=== PATIENT | male | born 1930 | race Caucasian/White ===

== ENCOUNTER 2020-10-19 22:10 | Inpatient (IN) | payer MEDICARE, OTHER ==
[~2020-10-19] VITALS: Ht 172.7 cm; Wt 65.8 kg
[~2020-10-19 22:10] MED LIST: ACIPHEX20 MG PO; ALLERGY RELIEF10 M1 PO; ANTIVERT 25MG T25 MG PO; ASPIR 8181 MG PO; AVODART0.5 MG PO; CARBIDOPA-LEVO1 EAC1 PO; CATAPRES 0.1MG0.1 MG PO; CEFUROXIME500 MG PO; ELIQUIS 2.5 MG2.5 MG PO; FARXIGA10 MG PO; FLOMAX 0.4 MG0.4 MG PO; IPRAT-ALBUT 0.5-3 ML NEB; JANUVIA50 MG PO; LASIX20 MG PO; LISINOPRIL10 MG PO; LOPRESSOR50 MG PO; MELATONIN3 MG PO; METFORMIN HCL500 MG PO; MOBIC7.5 MG PO; MYCOSTATIN100000 UTS PO; NASONEX SPRAY 117 GM; NORVASC 5 MG TAB5 MG PO; PRAVACHOL40 MG PO; SINGULAIR10 MG PO; STOOL SOFTENER100 MG PO; SYMMETREL 100100 MG PO; SYNTHROID 100100 MCG PO; TYLENOL 325MG325 MG PO; VITAMIN B-121000 MCG PO; VITAMIN D31000 UNI1 PO; VITAMIN D325 MC6 PO; VITAMIN D350000 UNIT PO
[2020-10-19 22:55] LABS: HEMOGLOBIN 9.2 gm/dl (14.0-17.5); RED BLOOD COUNT 3.99 M/UL (4.20-5.50); WHITE BLOOD COUNT 5.5 K/UL (4.5-11.0)
[2020-10-19 23:19] LABS: BUN/CREATININE RATIO 34 (0-10)
[2020-10-20] MEDS ORDERED: LEXAPRO5 MG PO (00:39)
[2020-10-20] MEDS ORDERED: PROTONIX40 MG PO (00:41)
[2020-10-20] MEDS ORDERED: SENNA-DOCUSATE1 EACH PO (00:43)
[2020-10-20] MEDS ORDERED: QUETIAPINE FUMA25 MG PO (00:47)
[2020-10-20] MEDS ORDERED: TYLENOL 500 MG500 MG PO (00:48)
[2020-10-20] MEDS ORDERED: CARBIDOPA-LEVO1 EA14 PO (00:52)
[2020-10-20] MEDS ORDERED: GENTLE LAXATIVE10 MG PR (00:56)
[2020-10-20] MEDS ORDERED: LACTULOSE20 GM/30 M PO (00:57)
[2020-10-20] MEDS ORDERED: ZINC OXIDE2500 GM TP (00:59)
[2020-10-20 05:10] LABS: HEMOGLOBIN 8.1 gm/dl (14.0-17.5); RED BLOOD COUNT 3.54 M/UL (4.20-5.50); WHITE BLOOD COUNT 6.1 K/UL (4.5-11.0)
[2020-10-20 05:38] LABS: BUN/CREATININE RATIO 33 (0-10)
--- NOTE | 2020-10-20 19:19 | NUR ---
report given to sudha tejeda
[2020-10-21 02:59] LABS: RED BLOOD COUNT 3.45 M/UL (4.20-5.50)
[2020-10-21 03:00] LABS: WHITE BLOOD COUNT 8.9 K/UL (4.5-11.0)
[2020-10-21 03:24] LABS: BUN/CREATININE RATIO 37 (0-10)
[2020-10-22 03:28] LABS: HEMOGLOBIN 8.7 gm/dl (14.0-17.5); RED BLOOD COUNT 3.75 M/UL (4.20-5.50); WHITE BLOOD COUNT 13.1 K/UL (4.5-11.0)
[2020-10-22 03:49] LABS: BUN/CREATININE RATIO 50 (0-10)
[2020-10-23 05:41] LABS: HEMOGLOBIN 8.8 gm/dl (14.0-17.5); RED BLOOD COUNT 3.86 M/UL (4.20-5.50)
[2020-10-23 06:45] LABS: BUN/CREATININE RATIO 30 (0-10)
[2020-10-24 05:31] LABS: HEMOGLOBIN 9.6 gm/dl (14.0-17.5); RED BLOOD COUNT 4.28 M/UL (4.20-5.50); WHITE BLOOD COUNT 9.5 K/UL (4.5-11.0)
[2020-10-24 05:49] LABS: BUN/CREATININE RATIO 34 (0-10)
[2020-10-24] MEDS ORDERED: IPRAT-ALBUT 0.5-3 ML NEB (09:29)
[2020-10-24] MEDS ORDERED: AZITHROMYCIN500 MG PO (09:29)
[2020-10-24] MEDS ORDERED: DECADRON6 MG PO (09:29)
== END 2020-10-24 15:21 | DRG 871 ==
LOC: ER1 22:10 → M/S 10-20 00:09 → CDU 10-20 00:09 → MED SURG 4 10-20 16:40 → M/S 10-20 19:37
PROVIDERS: Emergency Medicine; Internal Medicine; ADMIT Family Medicine
PROC: XW033E5 Introduction of Remdesivir Anti-infective into Peripheral Vein, Percutaneous Approach, New Technology Group 5 (ICD-10-PCS; principal; 2020-10-20)
PROC: 8E0ZXY6 Isolation (ICD-10-PCS; 2020-10-20)
DX: A41.89 Other specified sepsis (principal); R65.21 Severe sepsis with septic shock; U07.1 COVID-19; J12.82 Pneumonia due to coronavirus disease 2019; J15.9 Unspecified bacterial pneumonia; J96.21 Acute and chronic respiratory failure with hypoxia; I62.00 Nontraumatic subdural hemorrhage, unspecified; G93.40 Encephalopathy, unspecified; I42.9 Cardiomyopathy, unspecified; E87.2 Acidosis; E87.0 Hyperosmolality and hypernatremia; J90 Pleural effusion, not elsewhere classified; G20 Parkinson's disease; F02.80 Dementia in other diseases classified elsewhere, unspecified severity, without behavioral disturbance, psychotic disturbance, mood disturbance, and anxiety; I25.10 Atherosclerotic heart disease of native coronary artery without angina pectoris; N40.0 Benign prostatic hyperplasia without lower urinary tract symptoms; R13.10 Dysphagia, unspecified; E87.6 Hypokalemia; I48.91 Unspecified atrial fibrillation; I95.9 Hypotension, unspecified; E03.9 Hypothyroidism, unspecified; E11.9 Type 2 diabetes mellitus without complications; I10 Essential (primary) hypertension; M19.90 Unspecified osteoarthritis, unspecified site; Z66 Do not resuscitate; Z74.01 Bed confinement status; Z95.1 Presence of aortocoronary bypass graft; Z90.49 Acquired absence of other specified parts of digestive tract; Z98.49 Cataract extraction status, unspecified eye; Z80.6 Family history of leukemia; Z82.49 Family history of ischemic heart disease and other diseases of the circulatory system; I69.391 Dysphagia following cerebral infarction
CPT/HCPCS: 36415; 36600; 70450; 71045; 80048; 80053; 80202; 81001; 82550; 82553; 82803; 82962; 83605; 83690; 83735; 83874; 83880; 84100; 84439; 84443; 84484; 85025; 85027; 85610; 85730; 87040; 87086; 93005; 96365; 96366; 96367; 96368; 96375; 96376; 99285; J1100; J2543; J3370; J3480; J7030; J7070; Q9967

== ENCOUNTER 2020-10-29 07:06 | Emergency (ER) | payer MEDICARE, OTHER ==
[~2020-10-29 07:06] MED LIST changes: +AZITHROMYCIN500 MG PO; +CARBIDOPA-LEVO1 EA14 PO; +DECADRON6 MG PO; +GENTLE LAXATIVE10 MG PR; +LACTULOSE20 GM/30 M PO; +LEXAPRO5 MG PO; +PROTONIX40 MG PO; +QUETIAPINE FUMA25 MG PO; +SENNA-DOCUSATE1 EACH PO; +TYLENOL 500 MG500 MG PO; +ZINC OXIDE2500 GM TP
[2020-10-29 07:38] LABS: HEMOGLOBIN 9.5 gm/dl (14.0-17.5); RED BLOOD COUNT 4.29 M/UL (4.20-5.50); WHITE BLOOD COUNT 7.6 K/UL (4.5-11.0)
[2020-10-29 07:52] LABS: BUN/CREATININE RATIO 34 (0-10)
[2020-10-30] MEDS ORDERED: VIBRAMYCIN100 MG PO (02:29)
== END 2020-10-29 17:15 | disposition home or self-care (01) ==
LOC: ER1 07:06
PROVIDERS: Emergency Medicine
DX: F03.90 Unspecified dementia, unspecified severity, without behavioral disturbance, psychotic disturbance, mood disturbance, and anxiety (principal); E87.2 Acidosis; R06.02 Shortness of breath; E87.0 Hyperosmolality and hypernatremia; E11.9 Type 2 diabetes mellitus without complications; I10 Essential (primary) hypertension; Z86.16 Personal history of COVID-19
CPT/HCPCS: 36600; 70450; 71045; 80053; 81001; 82550; 82553; 82803; 83605; 83690; 83735; 83874; 83880; 84484; 85025; 93005; J7030; J7040

== ENCOUNTER 2020-10-29 22:21 | Emergency (ER) | payer MEDICARE, OTHER ==
[2020-10-30 00:16] LABS: BUN/CREATININE RATIO 32 (0-10)
[2020-10-30 00:25] LABS: HEMOGLOBIN 9.8 gm/dl (14.0-17.5); RED BLOOD COUNT 4.3 M/UL (4.20-5.50)
[2020-10-30 00:26] LABS: WHITE BLOOD COUNT 10.7 K/UL (4.5-11.0)
[2020-10-30] MEDS ORDERED: VIBRAMYCIN100 MG PO (02:29)
== END 2020-10-30 05:10 ==
LOC: ER1 22:21
PROVIDERS: Emergency Medicine
DX: R06.02 Shortness of breath (principal); F03.90 Unspecified dementia, unspecified severity, without behavioral disturbance, psychotic disturbance, mood disturbance, and anxiety; Z86.16 Personal history of COVID-19
CPT/HCPCS: 36600; 70450; 71045; 80053; 81001; 82140; 82550; 82553; 82803; 83605; 83690; 83735; 83874; 83880; 84439; 84443; 84484; 85025; 93005; 99285; J7030; J7040

== ENCOUNTER → 2020-11-02 | Outpatient (CLI) | payer MEDICARE, OTHER ==
[~2020-11-02] MED LIST changes: +VIBRAMYCIN100 MG PO
[2020-11-02 20:25] LABS: BUN/CREATININE RATIO 32 (0-10)
== END ==
LOC: LAB 19:58
PROVIDERS: Family Medicine
DX: U07.1 COVID-19 (principal); J12.82 Pneumonia due to coronavirus disease 2019
CPT/HCPCS: 80048